=== PATIENT | female | born 1995 | race Caucasian/White ===

== ENCOUNTER 2020-12-18 22:16 | Inpatient (IN) | payer MEDICAID ==
[~2020-12-18] VITALS: Ht 170.2 cm; Wt 70.0 kg
--- NOTE | 2020-12-18 22:32 | NUR ---
pt came into ed at this time for RESTREPO that started 1.5 days ago, SOB, pain under left shoulder blade. pt reports occassionally having vision. denies having something like this before. pt placed on spo2/bp/ecg monitoring, tachy on monitor hr 140s. pt changed into gown, bed in lowest, rails engaged, call light on lap, wctm.
[2020-12-18] MEDS ORDERED: SODIUM CHLORIDE 0.9% 1,000ML IVBOLUS ONE (23:00)
[2020-12-18] MEDS ORDERED: HYDROmorphone 1 MG/ML, 1ML INJ IV ONE (23:00)
[2020-12-18] MEDS ORDERED: ACETAMINOPHEN 500 MG TABLET PO ONE (23:00)
[2020-12-18] MEDS ORDERED: VANCOMYCIN PER PHARMACY MC ONE (23:00)
[2020-12-18] MEDS ORDERED: PIPERACILLIN/TAZO 4.5 GM in SODIUM CHLORIDE 0.9% 100 ML IVPB ONE (23:00)
[2020-12-18] MEDS ORDERED: ACETAMINOPHEN 500 MG TABLET ONE (23:02)
[2020-12-18] MEDS ORDERED: HYDROmorphone 1 MG/ML, 1ML INJ ONE (23:02)
[2020-12-18] MEDS ORDERED: FERR324T5 PO (23:22)
--- NOTE | 2020-12-18 23:22 | NUR ---
MED REC COMPLETED. UPDATED PTS PHARMACY PREFERENCE. CURRENTLY LYING IN BED. CONNECTED TO MONITORS. ELEVATED HR. PT COOPERATIVE. WILL CONTINUE TO MONITOR. BED IN LOW POSITION. CALL LIGHT WITHIN REACH. AUNT AT BEDSIDE.
[2020-12-18] MEDS ORDERED: VANCOMYCIN 1,700 MG in SODIUM CHLORIDE 0.9% 250 ML IV ONE (23:30)
[2020-12-18 23:42] LABS: BASOPHILS % (AUTO) 0 % (0-1); EOSINOPHILS % (AUTO) 0 % (1-7); LYMPHOCYTES % (AUTO) 13 % (22-44); MEAN CORPUSCULAR HEMOGLOBIN 26.5 pg (27.0-34.8); MEAN CORPUSCULAR HGB CONC 32.8 g/dL (32.4-35.8); MONOCYTES % (AUTO) 7 % (2-9); NEUTROPHILS % (AUTO) 80 % (42-75); PLATELET COUNT 153 x10^3/uL (130-400); RED CELL DISTRIBUTION WIDTH 15.5 % (9.6-15.2)
[2020-12-18 23:45] LABS: MD NO
[2020-12-18 23:52] LABS: ALANINE AMINOTRANSFERASE 60 U/L (12-78); ALBUMIN 3.1 g/dL (3.4-5.0); ANION GAP 9 mmol/L (5-15); CALCIUM 8.4 mg/dL (8.5-10.1); CHLORIDE 97 mmol/L (98-107); CREATININE 0.62 mg/dL (0.55-1.02)
[2020-12-18 23:58] LABS: ALKALINE PHOSPHATASE 213 U/L (45-117); BILIRUBIN,TOTAL 1.1 mg/dL (0.2-1.0); TOTAL PROTEIN 7.8 g/dL (6.4-8.2); TROPONIN I < 0.015 ng/mL (0.000-0.045)
--- NOTE | 2020-12-19 00:15 | NUR ---
PT RESTING ON RUBEN, NAD, STILL APPEARS UNCOMFORTABLE, STATES HER PAIN IS STILL PRESENT AND TAKING A DEEP BREATH IS PAINFUL. PT HR HAS DECREASED. MEDS STILL RUNNING AT THIS TIME. PT AUNT AT . [facility].
--- NOTE | 2020-12-19 00:25 | NUR ---
PT OFF UNIT IN IMAGING.
[2020-12-19] MEDS ORDERED: HYDROmorphone 1 MG/ML, 1ML INJ ONE (00:32)
[2020-12-19] MEDS ORDERED: HYDROmorphone 1 MG/ML, 1ML INJ IV STA (00:37)
[2020-12-19] MEDS ORDERED: OMNIPAQUE 350 MG/ML, 75ML BOTTLE ONE (00:49)
--- NOTE | 2020-12-19 01:04 | NUR ---
PT IN ROOM LYING IN BED. PT STATES SHE IS FEELING BETTER AND BREATHING BETTER. ATTACHED TO MONITORS. PT IN NAD. BED IN LOW POSITION. CALL LIGHT WITHIN REACH. WILL CONTINUE TO MONITOR.
[2020-12-19] MEDS ORDERED: POTASSIUM CHLORIDE 20 MEQ TAB.ER.PRT PO ONE ×2 (01:30→02:00)
[2020-12-19 01:47] LABS: MICROSCOPIC INDICATED
[2020-12-19] MEDS ORDERED: ACETAMINOPHEN 325 MG TABLET PO PRN (02:00)
[2020-12-19] MEDS: SODIUM CHLORIDE 0.9% 1,000 ML IV SCH ×3 (02:00→22:35)
[2020-12-19] MEDS ORDERED: VANCOMYCIN PER PHARMACY MC PRN (02:00)
[2020-12-19] MEDS ORDERED: PROMETHAZINE 25 MG/ML, 1ML IM PRN (02:00)
[2020-12-19] MEDS: ENOXAPARIN 40 MG/0.4 ML SQ SCH ×2 (02:00→03:17)
[2020-12-19] MEDS ORDERED: hydrALAzine 20 MG/ML, 1ML IVPush PRN (02:00)
[2020-12-19] MEDS ORDERED: DOCUSATE 100 MG CAPSULE PO PRN (02:00)
[2020-12-19] MEDS ORDERED: ONDANSETRON 2MG/ML, 2ML IVPush PRN (02:00)
[2020-12-19] MEDS ORDERED: POLYETHYLENE GLYCOL 17 GM PACKET PO PRN (02:00)
[2020-12-19] MEDS ORDERED: ONDANSETRON ODT 4 MG PO PRN (02:00)
[2020-12-19] MEDS ORDERED: BISACODYL 10 MG SUPP PR PRN (02:00)
[2020-12-19] MEDS ORDERED: POTASSIUM CHLORIDE 20 MEQ TAB.ER.PRT ONE (02:23)
--- NOTE | 2020-12-19 02:30 | NUR ---
REPORT CALLED TO PRAKASH BRIGHT, PT HAS NO CHANGE IN CONDITION, DENIES ADDITIONAL QUESTIONS OR NEEDS, PT BOYFRIEND CAME TO [employer] AND PERSONAL BELONGINGS.
[2020-12-19] MEDS: CEFTRIAXONE 2 GM in DEXTROSE 5% 50 ML IVPB SCH (03:17)
[2020-12-19 03:44] VITALS: BP 89/54
[2020-12-19 09:13] VITALS: BP 91/56
[2020-12-19 12:00] VITALS: BP 97/58
[2020-12-19] MEDS ORDERED: PHARMACOKINETIC MONITORING MC PRN (12:00)
[2020-12-19] MEDS: VANCOMYCIN 1,400 MG in SODIUM CHLORIDE 0.9% 250 ML IV SCH ×2 (12:50→23:35)
[2020-12-19 19:58] VITALS: BP 96/63
[2020-12-19] MEDS ORDERED: DIPHENOXYLATE/ATROPINE TABLET ONE (21:41)
[2020-12-19] MEDS: DIPHENOXYLATE/ATROPINE TABLET PO PRN (22:29)
[2020-12-20] MEDS ORDERED: TEMAZEPAM 15 MG CAPSULE PO PRN
[2020-12-20] MEDS: CEFTRIAXONE 2 GM in DEXTROSE 5% 50 ML IVPB SCH (01:42)
[2020-12-20] MEDS: ENOXAPARIN 40 MG/0.4 ML SQ SCH (01:42)
[2020-12-20 01:59] VITALS: BP 97/60
[2020-12-20 05:51] LABS: BASOPHILS % (AUTO) 0 % (0-1); EOSINOPHILS % (AUTO) 0 % (1-7); LYMPHOCYTES % (AUTO) 14 % (22-44); MEAN CORPUSCULAR HEMOGLOBIN 26.6 pg (27.0-34.8); MEAN CORPUSCULAR HGB CONC 32.9 g/dL (32.4-35.8); MEAN PLATELET VOLUME 10.8 fL (7.4-10.4); MONOCYTES % (AUTO) 6 % (2-9); NEUTROPHILS % (AUTO) 79 % (42-75); PLATELET COUNT 166 x10^3/uL (130-400); RED BLOOD COUNT 3.84 x10^6/uL (3.82-5.3); RED CELL DISTRIBUTION WIDTH 15.1 % (9.6-15.2)
[2020-12-20 05:58] LABS: MD NO
[2020-12-20 06:11] LABS: CHLORIDE 108 mmol/L (98-107)
[2020-12-20 06:20] VITALS: BP 93/57
[2020-12-20 06:27] LABS: ALANINE AMINOTRANSFERASE 105 U/L (12-78); ALBUMIN 2.5 g/dL (3.4-5.0); ALKALINE PHOSPHATASE 160 U/L (45-117); ANION GAP 8 mmol/L (5-15); BILIRUBIN,TOTAL 0.4 mg/dL (0.2-1.0); CALCIUM 8.3 mg/dL (8.5-10.1); CHOL/HDL RATIO 9.1; CHOLESTEROL, TOTAL 91 mg/dL (140-239); CREATININE 0.29 mg/dL (0.55-1.02); HDL CHOL % 11 % (28-40); HDL CHOLESTEROL (DIRECT) 10 mg/dL (40-60); LDL CHOLESTEROL,CALCULATED 52 mg/dL (54-169); LDL/HDL RATIO 5.2 (0.5-3.0); TOTAL PROTEIN 6.5 g/dL (6.4-8.2); TRIGLYCERIDES 144 mg/dL (50-200); VLDL CHOLESTEROL 29 mg/dL (0-25)
[2020-12-20] MEDS: POTASSIUM CHLORIDE 20 MEQ TAB.ER.PRT PO SCH ×2 (08:45→12:00)
[2020-12-20] MEDS: DIPHENOXYLATE/ATROPINE TABLET PO PRN (10:34)
[2020-12-20] MEDS ORDERED: METHADONE 10 MG TABLET PO SCH (12:00)
[2020-12-20] MEDS ORDERED: MORPHINE SULFATE 4 MG/ML, 1ML IVPush PRN (12:00)
[2020-12-20] MEDS ORDERED: VANCOMYCIN 1,400 MG in SODIUM CHLORIDE 0.9% 250 ML IV SCH (13:30)
== END 2020-12-20 14:07 | disposition left against medical advice (07) | DRG 871 ==
LOC: ED 12-19 00:05 → EDIP 12-19 01:35 → 4WST 12-19 02:47
PROVIDERS: ADMIT Internal Medicine; ATTEND Internal Medicine
DX: A41.02 Sepsis due to Methicillin resistant Staphylococcus aureus (principal); G93.41 Metabolic encephalopathy; I26.90 Septic pulmonary embolism without acute cor pulmonale; I33.0 Acute and subacute infective endocarditis; E87.1 Hypo-osmolality and hyponatremia; F11.23 Opioid dependence with withdrawal; L03.113 Cellulitis of right upper limb; N30.01 Acute cystitis with hematuria; B15.9 Hepatitis A without hepatic coma; B19.20 Unspecified viral hepatitis C without hepatic coma; D63.8 Anemia in other chronic diseases classified elsewhere; E87.6 Hypokalemia; E88.09 Other disorders of plasma-protein metabolism, not elsewhere classified; F17.210 Nicotine dependence, cigarettes, uncomplicated; I07.9 Rheumatic tricuspid valve disease, unspecified; R79.1 Abnormal coagulation profile; Z20.822 Contact with and (suspected) exposure to COVID-19; Z56.0 Unemployment, unspecified; Z53.29 Procedure and treatment not carried out because of patient's decision for other reasons
CPT/HCPCS: 36415; 70450; 71045; 71275; 80053; 80061; 81001; 83036; 83605; 83690; 83735; 83880; 84100; 84145; 84443; 84484; 84703; 85025; 86704; 86705; 86706; 86708; 86709; 86803; 87040; 87070; 87077; 87086; 87147; 87186; 87205; 87340; 87521; 87806; 93005; 93306; 96374; G0378; J0696; J1170; J1650; J2405; J2543; J3370; Q9967; U0005; G0475; J7030; J7050; U0003